=== PATIENT | female | born 1925 | race Caucasian/White ===

== ENCOUNTER → 2016-08-29 | Outpatient (CLI) | payer OTHER ==
--- NOTE | 2016-08-30 09:19 | CT ---
HISTORY: Chronic cough Study: CT chest without contrast Comparison: None Technique: Axial non contrast images with coronal and sagittal reformats. Dose reduction procedures were used with MA/kv adjusted for body size. Findings: Examination of the mediastinum demonstrated no evidence for mediastinal masses, enlarged lymphadenop athy, or enlarged hilar adenopathy. Calcific atherosclerotic changes present in a nondilated thoraci c aorta. The heart is enlarged. Bilateral small pleural effusions are identified. No chest wall or a xillary abnormality is identified. Those portions of the upper abdominal organs visualized were with in normal limits to the limitations of an unenhanced examination. There are some benign hepatic calc ifications present. The lungs are hyperinflated. Biapical pleural thickening is present. Nonspecific tree-in-bud inflammatory changes with some peribronchial thickening is identified in the right uppe r lobe likely due to bronchitis/bronchiolitis. Similar findings are present in the right middle lobe . Best visualized on series 4 axial image 37 and series 7 sagittal image 56 is an irregular area of abnormal density abutting the minor fissure and measuring approximately 1.4 by 1.8 by 2 centimeters. This could represent a focus of atelectasis and infiltrate however neoplasm cannot be excluded and PET-CT is recommended for further evaluation. Changes of bronchiectasis with peribronchial thickenin g is present in the right lower lobe, left lower lobe, and lingula along with some tree-in-bud infla mmatory changes likely representing bronchitis/bronchiolitis. Lower lobe bronchiectasis is present. IMPRESSION: Irregular area of abnormal parenchymal density measuring 1.4 x 1.8 x 2 centimeter located in the rig ht middle lobe and for which PET-CT is recommended for further evaluation. Bilateral areas of tree-in-bud inflammatory chain, peribronchial infiltrates and peribronchial thick ening consistent with bronchitis and respiratory bronchiolitis Bilateral lower lobe bronchiectasis Hyperinflation Reported By:
== END ==
LOC: RAD 12:13
PROVIDERS: ATTEND Internal Medicine Cardiovascular Disease
DX: R05 Cough (principal)
CPT/HCPCS: 71250

== ENCOUNTER → 2017-01-26 | Outpatient (CLI) | payer OTHER ==
[~2017-01-26] MED LIST: NS IV ONE
[2017-01-26 08:58] LABS: CREATININE 0.77 mg/dL (0.55-1.02)
--- NOTE | 2017-01-26 14:34 | CT ---
Indication: Cough and abnormal chest x-ray . Exam: CT chest with contrast. Comparison: CT chest without contrast 08/29/2016. Technique: Axial spiral images were obtained from the level above the clavicles through the adrenals after bolus administration of IV contrast without complication. Automated does control was utilized. Findings: The thyroid gland is unremarkable. There is mild dilatation of the ascending aorta measurin g up to 3.5 cm which is unchanged. There is no dissection. The pulmonary arteries are prominent centr ally with no filling defects. There small lymph nodes in the AP window measuring 2 cm which are more prominent there are small pretracheal lymph nodes with the largest seen at the chato measuring 1 cm. There are small subcarinal lymph nodes which are more prominent. There are small pleural effusions a long the lung bases on the right greater than left which have increased in size. There is volume loss and consolidation along the left lower lobe which is increased and extends superiorly into the upper chest. There is moderate airspace opacity throughout the right lung base extending superiorly into t he perihilar region and superior segment . There is moderate pleural thickening and scarring in the a pices with pleural base calcifications which is unchanged. There is hazy airspace opacity along both upper lobes laterally and posteriorly and extending inferiorly which is more prominent . There is mil d bronchiectasis along the lung bases with no obvious mucous plugging seen . There is no obvious pulm onary nodule or mass . The adrenals are normal . The liver is mildly enlarged but unchanged. There ar e some calcifications in the left lobe medially which are unchanged . There are moderate degenerative changes seen in the spine with no aggressive osseous lesion. Impression: Small bibasilar pleural effusions which are more prominent. Moderate atelectasis and consolidation in the left lower lobe extending superiorly which is more prom inent. Moderate parenchymal opacities scattered along both upper lobes extending into the parahilar regions and both lung bases which is more prominent and could represent multisegmental bronchopneumonia , rec ommend short-term follow-up Mild mediastinal adenopathy which is more prominent and could be infectious in etiology. 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 Mild hepatomegaly which is unchanged. Reported By:
== END ==
LOC: RAD 08:33
PROVIDERS: ATTEND Internal Medicine Pulmonary Disease
DX: R93.8 Abnormal findings on diagnostic imaging of other specified body structures (principal); J98.4 Other disorders of lung
CPT/HCPCS: 36415; 71260; 82565; 84520; A4222